=== PATIENT | male | born 1975 | race Caucasian/White ===

== ENCOUNTER 2016-12-01 | Emergency (ER) | payer MEDICAID, OTHER ==
--- NOTE | 2016-12-01 13:41 | ED ---
Recheck HPI - General Chief Complaint: Needlestick/Exposure Stated Complaint: Needle Stick Time Seen by Provider: 12/01/16 13:35 Source: patient, RN notes reviewed Mode of arrival: ambulatory Limitations: no limitations - History of Present Illness Initial Comments: Patient is a 41-year-old male with chief complaint of a needle stick exposure of the right hand approximately one hour ago. Patient reports that he was putting a central line in helping the position when he went to clean up the materials a needle poked him through the back. Patient denies any blood from the needle stick. We are able to obtain the lab work from the exposed person. Patient will be receiving the standard blood work procedure from [facility]. - Related Data Home Medications Medication Instructions Recorded Confirmed No Known Home Medications [No 12/01/16 12/01/16 Known Home Medications] Allergies Allergy/AdvReac Type Severity Reaction Status Date / Time No Known Allergies Allergy Verified 12/01/16 13:31 Review of Systems ROS Statement: Those systems with pertinent positive or pertinent negative responses have been documented in the HPI. ROS Other: All systems not noted in ROS Statement are negative. Past Medical History Past Medical History: No Reported History Additional Past Medical History / Comment(s): kidney stones History of Any Multi-Drug Resistant Organisms: None Reported Past Surgical History: No Surgical Hx Reported Past Anesthesia/Blood Transfusion Reactions: No Reported Reaction Past Psychological History: No Psychological Hx Reported Smoking Status: Never smoker Past Alcohol Use History: None Reported Past Drug Use History: None Reported General Exam - General Exam Comments Initial Comments: Patient is a 41-year-old male. He does not appear to be in any acute distress. Limitations: no limitations General appearance: alert, in no apparent distress Head exam: Present: atraumatic, normocephalic, normal inspection Eye exam: Present: normal appearance, PERRL, EOMI. Absent: scleral icterus, conjunctival injection, periorbital swelling ENT exam: Present: normal exam, mucous membranes moist Neck exam: Present: normal inspection. Absent: tenderness, meningismus, lymphadenopathy Respiratory exam: Present: normal lung sounds bilaterally. Absent: respiratory distress, wheezes, rales, rhonchi, stridor Cardiovascular Exam: Present: regular rate, normal rhythm, normal heart sounds. Absent: systolic murmur, diastolic murmur, rubs, gallop, clicks GI/Abdominal exam: Present: soft, normal bowel sounds. Absent: distended, tenderness, guarding, rebound, rigid Extremities exam: Present: normal inspection, full ROM, normal capillary refill. Absent: tenderness, pedal edema, joint swelling, calf tenderness Back exam: Present: normal inspection Neurological exam: Present: alert, oriented X3, CN II-XII intact Psychiatric exam: Present: normal affect, normal mood Skin exam: Present: warm, dry, intact, normal color. Absent: rash Course Vital Signs 12/01/16 13:32 Temperature 98 F Pulse Rate 78 Respiratory 20 Rate Blood Pressure 145/78 O2 Sat by Pulse 95 Oximetry - Reevaluation(s) Reevaluation #1: 12/01/16 15:21 Lab called back and stated that the source patient was negative for HIV. Exposed patient was informed of this. 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 After doing a central line patient was exposed by a needle stick on his right hand. There is no blood at the needlestick point. Patient was given the standard protocol lab work in the patient he was exposed to will also receive lab draws. She will be informed of the results. Patient will return to work at this time available, patient with the rapid HIV and hepatitis. Patient understands treatment plan will comply. Return parameters were discussed. The source patient lab was reviewed to be negative for the rapid HIV. I did inform the patient of this. Disposition Clinical Impression: Needlestick injury accident with exposure to body fluid Disposition: HOME SELF-CARE Condition: Good Instructions: Needle Stick Injuries (ED) Additional Instructions: Patient will be informed of the results. We'll also draw labs on the source of the exposure. Return to the EC if any alarming signs or symptoms occur. Referrals: None,Stated [Primary Care Provider] - 1-2 days Time of Disposition: 13:49
== END 2016-12-01 13:55 | disposition home or self-care (01) ==
CPT/HCPCS: 99282

== ENCOUNTER 2019-01-19 18:09 | Observation (INO) | payer MEDICAID, OTHER ==
[2019-01-19] MEDS ORDERED: NITROGLYCERIN OINT 1 INCH/GM PACKET TOPICAL STA (18:26)
[2019-01-19] MEDS ORDERED: ASPIRIN 81 MG PO STA (18:26)
--- NOTE | 2019-01-19 18:29 | ED ---
Chest Pain HPI - General Chief Complaint: Chest Pain Stated Complaint: chest pain Time Seen by Provider: 01/19/19 18:21 Source: patient Mode of arrival: wheelchair Limitations: no limitations - History of Present Illness Initial Comments: This 44-year-old white male presents with a complaint of some midsternal chest pain which she describes as a burning type of sensation and it is nonradiating. He denies any shortness of breath. It is not exertionally related. He states that is intermittent in nature and has been going on for approximately 10 days. He denies any palpitations, diaphoresis, or history of cardiac disease. He denies any leg pain or swelling or history of DVT or PE. 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 He's never had a stress test or heart catheterization. No other complaints or modifying factors. - Related Data Home Medications Medication Instructions Recorded Confirmed Calcium Carbonate [Tums] 500 mg PO Q2H 01/19/19 01/19/19 Ibuprofen [Motrin Ib] 800 mg PO Q8H 01/19/19 01/19/19 buPROPion [Wellbutrin] 100 mg PO DAILY 01/19/19 01/19/19 Allergies Allergy/AdvReac Type Severity Reaction Status Date / Time No Known Allergies Allergy Verified 01/19/19 18:41 Review of Systems ROS Statement: Those systems with pertinent positive or pertinent negative responses have been documented in the HPI. ROS Other: All systems not noted in ROS Statement are negative. Past Medical History Past Medical History: No Reported History Additional Past Medical History / Comment(s): kidney stones History of Any Multi-Drug Resistant Organisms: None Reported Past Surgical History: No Surgical Hx Reported Past Anesthesia/Blood Transfusion Reactions: No Reported Reaction Past Psychological History: No Psychological Hx Reported Smoking Status: Never smoker Past Alcohol Use History: None Reported Past Drug Use History: None Reported General Exam - General Exam Comments Initial Comments: GENERAL: The patient is well nourished and well hydrated. VITAL SIGNS: Heart rate, blood pressure, respiratory rate reviewed as recorded in nurse's notes. EYES: Pupils are round and reactive. Extraocular movements are intact. No conjunctival / lid redness or swelling. ENT: No external evidence of injury, swelling, or ecchymosis. Airway is patent. Throat is clear. NECK: Nontender. No swelling or evidence of injury. No subcutaneous emphysema. Trachea is midline. No thyroid mass. HEART: Regular rate and rhythm. Good peripheral pulses. LUNGS/CHEST: Breath sounds clear and equal bilaterally. No rales, rhonchi, or wheezes. No ecchymosis, subcutaneous emphysema, or tenderness. ABDOMEN: Abdomen soft without tenderness. No palpable masses or organomegaly. No peritoneal signs. No abdominal wall swelling or ecchymosis. EXTREMITIES: No extremity tenderness. Normal muscle tone and function. No thoracolumbar tenderness. NEUROLOGIC: Sensation is grossly intact. Cranial nerve exam reveals face is symmetrical, tongue is midline, speech is clear. SKIN: No abrasions or ecchymosis is noted. No induration or masses noted. PSYCHIATRIC: Alert and oriented. Appropriate behavior and judgment. Limitations: no limitations Course Vital Signs 01/19/19 01/19/19 18:14 18:17 Temperature 98.1 F Pulse Rate 95 Respiratory 16 Rate Blood Pressure 157/105 O2 Sat by Pulse 96 Oximetry Chest Pain MDM - MDM The patient was seen and examined. All diagnostics are reviewed. The EKG shows a normal sinus rhythm at a rate of 79. There is no acute ST-T wave changes noted. The patient receives an aspirin as well as some Nitropaste. The chest x-ray does not show any acute processes. The cardiac profile labs are all within normal limits. He is feeling improved on recheck. The possibility of acute coronary syndrome certainly is possible and it is felt as though he would benefit from admission to the hospital for further treatment. Case was discussed with Dr. Wadsworth and he is agreeable with admission. Disposition Clinical Impression: Chest pain, Unstable angina Disposition: ADMITTED IP TO THIS HOSP Condition: Fair Is patient prescribed a controlled substance at d/c from ED?: No Time of Disposition: 20:40 Decision Date: 01/19/19 Decision Time: 20:40
[2019-01-19 18:47] LABS: Basophils % (A) 1 %; Eosinophils # (A) 0.2 k/uL (0-0.7); Eosinophils % (A) 3 %; HCT 47.4 % (39.0-53.0); HGB 15.4 gm/dL (13.0-17.5); Lymphocytes % (A) 25 %; MCH 28.7 pg (25.0-35.0); MCHC 32.6 g/dL (31.0-37.0); MCV 88.3 fL (80.0-100.0); Mean Platelet Volume 6.3; Monocytes # (A) 0.4 k/uL (0-1.0); Monocytes % (A) 5 %; Neutrophils # (A) 5.1 k/uL (1.3-7.7); Neutrophils % (A) 66 %; Platelet Count 297 k/uL (150-450); RBC 5.37 m/uL (4.30-5.90); RDW 13.2 % (11.5-15.5); WBC 7.7 k/uL (3.8-10.6)
[2019-01-19 18:56] LABS: ALT 34 U/L (21-72); AST 38 U/L (17-59); Albumin 5.1 g/dL (3.5-5.0); Alkaline Phosphatase 93 U/L (38-126); Anion Gap 9 mmol/L; Blood Urea Nitrogen 15 mg/dL (9-20); Calcium 9.6 mg/dL (8.4-10.2); Carbon Dioxide 28 mmol/L (22-30); Chloride 103 mmol/L (98-107); Glucose 119 mg/dL (74-99); Magnesium 2.1 mg/dL (1.6-2.3); Sodium 140 mmol/L (137-145); Total Bilirubin 0.9 mg/dL (0.2-1.3)
[2019-01-19 18:58] LABS: Potassium 4.6 mmol/L (3.5-5.1)
[2019-01-19 19:01] LABS: INR 0.9 (<1.2); Partial Thromboplastin Time 24.4 sec (22.0-30.0)
[2019-01-19 19:08] LABS: D-Dimer <0.17 mg/L FEU (<0.60)
--- NOTE | 2019-01-19 19:13 | XR ---
EXAMINATION TYPE: XR chest 2V DATE OF EXAM: 01/19/2019 COMPARISON: 12/10/2008 HISTORY: Chest pain TECHNIQUE: Frontal and lateral views of the chest are obtained. FINDINGS: Heart and mediastinum are normal. Lungs are clear. Diaphragm is normal. Bony thorax appear s normal. IMPRESSION: Normal chest. No change.
[2019-01-19] MEDS ORDERED: NITROGLYCERIN SL TABS 0.4 MG TAB SUBLINGUAL PRN (20:41)
[2019-01-19] MEDS ORDERED: CALCIUM CARBONATE 500 MG CHEWABLE PO PRN (20:45)
[2019-01-20] MEDS: IBUPROFEN 800 MG TAB PO SCH ×2 (00:16→05:59)
[2019-01-20] MEDS: NITROGLYCERIN OINT 1 INCH/GM PACKET TOPICAL SCH ×2 (00:16→05:59)
[2019-01-20] MEDS: PANTOPRAZOLE 40 MG/10 ML VIAL IVP SCH ×2 (00:16→03:00)
[2019-01-20 01:59] VITALS: BMI 37.5
[2019-01-20 06:28] VITALS: TEMP 97
[2019-01-20 07:39] LABS: Cholesterol 198 mg/dL (<200); HDL Cholesterol 55 mg/dL (40-60); LDL Cholesterol,Calculated 122 mg/dL (0-99); Triglycerides 104 mg/dL (<150)
[2019-01-20 08:45] VITALS: BP 149/74; PULSE 84; RESP 18
[2019-01-20] MEDS ORDERED: ENOXAPARIN 40 MG/0.4 ML SYRINGE SQ SCH (09:00)
[2019-01-20] MEDS ORDERED: buPROPion 100 MG TAB PO SCH (09:00)
[2019-01-20] MEDS ORDERED: ASPIRIN 325 MG TAB PO SCH (09:00)
--- NOTE | 2019-01-20 11:23 | US ---
EXAMINATION TYPE: US abdomen complete DATE OF EXAM: 01/20/2019 COMPARISON: NONE CLINICAL HISTORY: Gall stones. NPO, no surgeries. Epigastric burning x 1 week EXAM MEASUREMENTS: Liver Length: 16.7 cm Gallbladder Wall: 0.2 cm CHD: 0.5 cm Spleen: 10.3 cm Right Kidney: 10.0 x 5.6 x 5.8 cm Left Kidney: 10.4 x 6.4 x 5.6 cm Limited visualization due to overlying bowel gas Pancreas: Appears echogenic, tail obscured by overlying bowel gas Liver: wnl Gallbladder: wnl Evidence for sonographic Jc's sign: neg CBD: Obscured by overlying bowel gas CHD: wnl Spleen: wnl Right Kidney: wnl Left Kidney: wnl Upper IVC: wnl Abd Aorta: Proximal obscured by overlying bowel gas The liver is homogenous. The intrahepatic portion of the IVC and proximal abdominal aorta are within normal limits. There is no evidence of cholelithiasis. Common bile duct is unremarkable. The visu alized portions of the pancreas are homogenous. The spleen is unremarkable. Kidneys are symmetric a nd free of hydronephrosis. No renal lesions are seen. IMPRESSION: Somewhat limiting exam secondary to overlying bowel gas however no evidence of cholelithi asis or sonographic evidence of acute cholecystitis is seen.
--- NOTE | 2019-01-20 11:24 | P.CRDCN ---
History of Present Illness Consult date: 01/20/19 Reason for Consult (text): Chest pain. Chief complaint: Chest pain History of present illness: HISTORY OF PRESENT ILLNESS AND PLAN: This is a [44]-year-old [male] with history of kidney stones, foreign body in left anterior thigh, costochondritis. No current cardiac history. 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 Presents in the emergency department for [complaints of central non-exertional chest pain, described as burning/ache for approximately 7-10 days. Patient states there was some radiation to the throat, described throat as being tight. Patient states he tried using Tums, aspirin, Motrin at home for relief but symptoms continued. Patient has no family history of early cardiac disease. Patient denies symptoms of palpitations, shortness of breath, cough, dizziness, nausea or vomiting. Patient currently alert and oriented sitting in the chair with no acute distress. Patient is a never smoker]. SIGNIFICANT PAST MEDICAL HISTORY: [left anterior thigh injury with wood ax, foreign body removal. Viral meningitis, kidney stones, costochondritis history.] PAST SURGICAL HISTORY: See list. EKG shows [sinus rhythm], heart rate [89] beats per minute. Troponins negative x [3]. SIGNIFICANT LABORATORY VALUES: [CBC, BMP, d-dimer all within normal limits. Total cholesterol 198- LDL 122, HDL 55]. Chest x-ray [negative]. No recent echo or stress test. REVIEW OF SYSTEMS: CONSTITUTIONAL: [Denies fever. Denies chills.] EYES: Denies blurred vision. [Denies blurred vision or vision changes. Denies eye pain.] EARS, NOSE, MOUTH & THROAT: [Denies headache. Throat tightness. Denies ear pain Denies hemoptysis.] CARDIOVASCULAR: [C/o central chest pain, burning/ache. Denies shortness of cooper ath. Denies orthopnea. Denies PND. Denies palpitations.] RESPIRATORY: [Denies cough. Denies shortness of breath. ] GASTROINTESTINAL: [Denies abdominal pain or distention. Complains of epigastric pain. Denies diarrhea. Denies constipation. Denies nausea. Denies vomiting.] MUSCULOSKELETAL: [Denies myalgias.] INTEGUMENTARY: [Denies pruitis. Denies rash.] ENDOCRINE: [Denies fatigue. Denies weight change. Denies polydipsia. Denies polyurina Denies heat/cold intolerance.] GENITOURINARY:[ Denies burning, hematuria or urgency with micturation.] HEMATOLOGIC: [Denies history of anemia. Denies bleeding.] NEUROLOGIC: [Denies numbness. Denies tingling. Denies weakness.] PSYCHIATRIC: [Denies anxiety. Denies depression.] PHYSICAL EXAM: VITAL SIGNS: Blood pressure 134/89, heart rate 80, 97.0 temperature GENERAL: Well developed, in no acute distress. HEENT: Head is atraumatic, normocephalic. Pupils are equal, round. Extra ocular movements intact. Mucous membranes moist. Neck supple. No JVD. No carotid bruit. No thyromegaly. LUNGS: Clear to auscultation no wheezes, rales or rhonchi. No chest wall tenderness on palpation or with deep breathing. HEART: Regular rate and rhythm, no rubs or gallops. S1 and S2 heard. No murmur. ABDOMEN: Abdominal exam, WNL. Bowel sounds x4 quads. Soft, non-tender, without masses, organomegaly, or abdominal aorta enlargement. EXTREMITIES/VASCULAR: Extremities have easily palpable radial, femoral, dorsalis pedis and posterior tibial pulses. No cyanosis, calf tenderness. No BLE edema. NEUROLOGIC: Patient is awake, alert and oriented x3. No focal neurologic abnormalities. 1. Atypical chest pain, with negative troponins. 2. epigastric pain PLAN: [Patient to echocardiogram and stress echo. Patient to abdominal ultrasound. Patient to continue all other medical/medication regime. We will continue to follow, please call with any questions or concerns. Thank you kindly for this consult.] Nurse Practioner note has been reviewed by [employer]. Signing provider agrees with the documented findings, assessment and plan of care. Review of Systems REVIEW OF SYSTEMS: CONSTITUTIONAL: [Denies fever. Denies chills.] EYES: Denies blurred vision. [Denies blurred vision or vision changes. Denies eye pain.] EARS, NOSE, MOUTH & THROAT: [Denies headache. Throat tightness. Denies ear pain Denies hemoptysis.] CARDIOVASCULAR: [C/o central chest pain, burning/ache. Denies shortness of breath. Denies orthopnea. Denies PND. Denies palpitations.] RESPIRATORY: [Denies cough. Denies shortness of breath. ] GASTROINTESTINAL: [Denies abdominal pain or distention. Denies diarrhea. Denies constipation. Denies nausea. Denies vomiting.] MUSCULOSKELETAL: [Denies myalgias.] INTEGUMENTARY: [Denies pruitis. Denies rash.] ENDOCRINE: [Denies fatigue. Denies weight change. Denies polydipsia. Denies polyurina Denies heat/cold intolerance.] GENITOURINARY:[ Denies burning, hematuria or urgency with micturation.] HEMATOLOGIC: [Denies history of anemia. Denies bleeding.] NEUROLOGIC: [Denies numbness. Denies tingling. Denies weakness.] PSYCHIATRIC: [Denies anxiety. Denies depression.] Past Medical History Past Medical History: No Reported History Additional Past Medical History / Comment(s): kidney stones, meningitis History of Any Multi-Drug Resistant Organisms: None Reported Past Surgical History: No Surgical Hx Reported Past Anesthesia/Blood Transfusion Reactions: No Reported Reaction Past Psychological History: No Psychological Hx Reported Smoking Status: Never smoker Past Alcohol Use History: None Reported Past Drug Use History: None Reported - Past Family History Father Family Medical History: Cancer Medications and Allergies Home Medications and Allergies Comment(s): PHYSICAL EXAM: VITAL SIGNS: GENERAL: Well developed, in no acute distress. HEENT: Head is atraumatic, normocephalic. Pupils are equal, round. Extra ocular movements intact. Mucous membranes moist. Neck supple. No JVD. No carotid bruit. No thyromegaly. LUNGS: Clear to auscultation no wheezes, rales or rhonchi. No chest wall tenderness on palpation or with deep breathing. HEART: Regular rate and rhythm, no rubs or gallops. S1 and S2 heard. No murmur. ABDOMEN: Abdominal exam, WNL. Bowel sounds x4 quads. Soft, non-tender, without masses, organomegaly, or abdominal aorta enlargement. EXTREMITIES/VASCULAR: Extremities have easily palpable radial, femoral, dorsalis pedis and posterior tibial pulses. No cyanosis, calf tenderness. No BLE edema. NEUROLOGIC: Patient is awake, alert and oriented x3. No focal neurologic abnormalities. Home Medications Medication Instructions Recorded Confirmed Type Calcium Carbonate [Tums] 500 mg PO Q2H 01/19/19 01/19/19 History Ibuprofen [Motrin Ib] 800 mg PO Q8H 01/19/19 01/19/19 History buPROPion [Wellbutrin] 100 mg PO DAILY 01/19/19 01/19/19 History Allergies Allergy/AdvReac Type Severity Reaction Status Date / Time No Known Allergies Allergy Verified 01/19/19 18:41 Physical Exam Vitals: Vital Signs Temp Pulse Pulse Resp BP BP Pulse Ox 01/20/19 08:00 84 18 149/74 84 L 01/20/19 04:00 97 F L 70 16 114/64 01/20/19 00:00 97.6 F 84 16 119/72 96 01/19/19 21:39 97 F L 80 16 134/89 97 01/19/19 21:10 91 33 H 128/97 96 01/19/19 21:00 91 18 130/94 95 01/19/19 20:50 82 20 130/94 93 L 01/19/19 20:40 75 18 130/94 96 01/19/19 20:30 80 10 L 135/90 97 01/19/19 20:20 78 16 135/90 94 L 01/19/19 20:10 79 19 135/90 94 L 01/19/19 20:00 80 18 141/91 97 01/19/19 19:50 80 16 141/91 94 L 01/19/19 19:40 81 15 141/91 94 L 01/19/19 19:30 84 14 148/96 94 L 01/19/19 19:20 83 10 L 148/96 96 01/19/19 19:10 85 12 148/96 93 L 01/19/19 19:00 88 23 148/96 94 L 01/19/19 18:50 81 11 L 148/96 96 01/19/19 18:40 85 12 148/96 95 01/19/19 18:30 79 9 L 152/99 96 01/19/19 18:22 79 16 98 01/19/19 18:17 157/105 01/19/19 18:14 98.1 F 95 16 96 Intake and Output 01/19/19 01/20/19 01/20/19 22:59 06:59 14:59 Intake Total 200 200 Output Total 1 Balance 200 199 Intake: Oral 200 200 Output: Urine 1 Other: # Voids 2 Weight 113.398 kg 118.7 kg 118.388 kg Results 01/19/19 18:32 01/19/19 18:32 Cardiac Enzymes 01/19/19 01/19/19 01/19/19 Range/Units 18:32 18:32 23:57 AST 38 (17-59) U/L Troponin I <0.012 <0.012 (0.000-0.034) ng/mL 01/20/19 Range/Units 06:50 AST (17-59) U/L Troponin I <0.012 (0.000-0.034) ng/mL Coagulation 01/19/19 Range/Units 18:32 PT 10.0 (9.0-12.0) sec APTT 24.4 (22.0-30.0) sec Lipids 01/20/19 Range/Units 06:50 Triglycerides 104 (<150) mg/dL Cholesterol 198 (<200) mg/dL HDL Cholesterol 55 (40-60) mg/dL CBC 01/19/19 Range/Units 18:32 WBC 7.7 (3.8-10.6) k/uL RBC 5.37 (4.30-5.90) m/uL Hgb 15.4 (13.0-17.5) gm/dL Hct 47.4 (39.0-53.0) % Plt Count 297 (150-450) k/uL Comprehensive Metabolic Panel 01/19/19 Range/Units 18:32 Sodium 140 (137-145) mmol/L Potassium 4.6 (3.5-5.1) mmol/L Chloride 103 (98-107) mmol/L Carbon Dioxide 28 (22-30) mmol/L BUN 15 (9-20) mg/dL Creatinine 1.05 (0.66-1.25) mg/dL Glucose 119 H (74-99) mg/dL Calcium 9.6 (8.4-10.2) mg/dL AST 38 (17-59) U/L ALT 34 (21-72) U/L Alkaline Phosphatase 93 (38-126) U/L Total Protein 8.0 (6.3-8.2) g/dL Albumin 5.1 H (3.5-5.0) g/dL Current Medications Generic Name Dose Route Start Last Admin Trade Name Freq PRN Reason Stop Dose Admin Aspirin 81 mg 01/21/19 09:00 Aspirin PO DAILY ARCHANA Bupropion HCl 100 mg 01/20/19 09:00 01/20/19 08:34 Wellbutrin PO 100 mg DAILY ARCHANA Administration Calcium Carbonate/Glycine 500 mg 01/19/19 20:45 Tums PO Q2H PRN Heartburn Enoxaparin Sodium 40 mg 01/20/19 09:00 01/20/19 08:34 Lovenox SQ 40 mg DAILY ARCHANA Administration Ibuprofen 800 mg 01/19/19 22:00 01/20/19 05:59 Motrin PO 800 mg Q8H ARCHANA Administration Nitroglycerin 0.4 mg 01/19/19 20:41 Nitrostat SUBLINGUAL Q5M PRN Chest Pain Pantoprazole Sodium 40 mg 01/19/19 20:45 01/20/19 03:00 Protonix IVP 40 mg HS ARCHANA Administration Intake and Output 01/19/19 01/20/19 01/20/19 22:59 06:59 14:59 Intake Total 200 200 Output Total 1 Balance 200 199 Intake: Oral 200 200 Output: Urine 1 Other: # Voids 2 Weight 113.398 kg 118.7 kg 118.388 kg Patient Weight 01/21/19 06:59 Weight 118.388 kg 01/19/19 18:32 01/19/19 18:32 Assessment and Plan Plan: 1. Atypical chest pain, with negative troponins. 2. epigastric pain PLAN: [Patient to echocardiogram and stress echo to rule out acute cardiac event. Troponins negative 3. Patient to abdominal ultrasound. Patient to continue all other medical/medication regime. we'll continue to follow, please call with any questions or concerns. Thank you kindly for this consult.]
--- NOTE | 2019-01-20 12:01 | ECHOF ---
Referral Reason:cp MEASUREMENTS -------- HEIGHT: 177.8 cm WEIGHT: 118.4 kg BP: RVIDd: 2.5 cm (< 3.3) IVSd: 1.2 cm (0.6 - 1.1) LVIDd: 3.3 cm (3.9 - 5.3) LVPWd: 1.3 cm (0.6 - 1.1) IVSs: 1.7 cm LVIDs: 1.8 cm LVPWs: 1.9 cm Ao Diam: 2.9 cm (2.0 - 3.7) AV Cusp: 1.9 cm (1.5 - 2.6) LA Diam: 2.8 cm (2.7 - 3.8) MV EXCURSION: 10.759 mm (> 18.000) MV EF SLOPE: 54 mm/s (70 - 150) EPSS: 0.4 cm MV E Jorge Luis: 0.54 m/s MV DecT: 142 ms MV A Jorge Luis: 0.55 m/s MV E/A Ratio: 0.98 RAP: 5.00 mmHg RVSP: 14.20 mmHg FINDINGS -------- Sinus rhythm. This was a technically difficult study with suboptimal views. The left ventricular size is normal. There is mild concentric left ventricular hypertrophy. Overa ll left ventricular systolic function is normal with, an EF between 55 - 60 %. The right ventricle is normal in size. The left atrium is normal in size. The right atrial size is normal. Lumason used The aortic valve is trileaflet and appears structurally normal. There is trace mitral regurgitation. Trace tricuspid regurgitation present. The right ventricular systolic pressure, as measured by Dopp ler, is 14.20mmHg. There is no pulmonic regurgitation present. The aortic root size is normal. IVC Not well visulized. There is no pericardial effusion. CONCLUSIONS -------- 1. Sinus rhythm. 2. This was a technically difficult study with suboptimal views. 3. The left ventricular size is normal. 4. There is mild concentric left ventricular hypertrophy. 5. Overall left ventricular systolic function is normal with, an EF between 55 - 60 %. 6. The right ventricle is normal in size. 7. The left atrium is normal in size. 8. The right atrial size is normal. 9. Lumason used 10. The aortic valve is trileaflet and appears structurally normal. 11. There is trace mitral regurgitation. 12. Trace tricuspid regurgitation present. 13. The right ventricular systolic pressure, as measured by Doppler, is 14.20mmHg. 14. There is no pulmonic regurgitation present. 15. The aortic root size is normal. 16. IVC Not well visulized. 17. There is no pericardial effusion. PROFESSOR OF GENETICS: Airam Spears RDCS
--- NOTE | 2019-01-20 12:59 | ECHOS ---
STRESS ECHOCARDIOGRAM INDICATIONS: Chest pain. MEDICATIONS: Wellbutrin, Motrin, TUMS BASELINE HEART RATE: 92 BASELINE BLOOD PRESSURE: 103/82 MAXIMUM HEART RATE: 173 MAXIMUM BLOOD PRESSURE: 158/73 85% MPHR: 151 100% MPHR: 178 METS: 10.5 MAXIMUM STAGE REACHED: III TOTAL EXERCISE TIME: 9:12 CLINICAL INFORMATION: The patient was exercised for a total of 9 minutes. The peak heart rate of 173 was achieved. Maximum blood pressure 158/73 mmHg was noted. Patient did not complain of any chest pain during the test. The resting EKG shows normal sinus rhythm with normal NH interval and QRS duration and normal ST-T waves. No ST-segment depression suggestive of ischemia is noted. The baseline echocardiographic images reveals a normal left ventricular chamber size with normal left ventricular systolic function in the immediate postexercise period. Normal increase in the wall thickness and contractility is noted. FINAL IMPRESSION: This stress echocardiographic study is negative for stress-induced ischemia. EKG portion of the stress test is not suggestive of ischemia. MMODL / IJN: [id number] /
--- NOTE | 2019-01-20 21:52 | P.HPIM ---
History of Present Illness H&P Date: 01/20/19 Chief Complaint: Chest pain Patient is a gyxia-dcpt-mac male with a known history of renal stones, foreign body in the left anterior thigh/axe injury, costochondritis came to ER with complaints of chest pain mainly mid xiphisternal region mainly burning type 7 out of 10 in severity. Patient also complaining of radiation to throat/throat tightness upon admission. Patient does not have any previous cardiac history. Patient tried Tums at home without much relief of the pain. Patient was also taking Motrin. Denied any shortness of breath. No cough or sputum production. No fever no chills. No nausea vomiting or abdominal pain or diarrhea. Denied any no recent illnesses. No family history of coronary artery disease. Never a smoker. Chest x-ray showed no acute cardio process EKG showed sinus rhythm normal US abdomen showed somewhat limited exam secondary to overlying bowel gas however no evidence ofcholelithiasis or sonographic evidence of acute cholecystitis is seen. Review of Systems Constitutional: Patient denies any fever or chills . No generalized weakness or weight loss. Abdomen: Patient denied nausea vomiting and diarrhea and abdominal pain. Cardiovascular: Epigastric pain. Patient denies any chest pain or short of breath no palpitations. Respiratory: patient denied any cough is from production. No shortness of breath Neurologic: Patient denied any numbness or tingling headache. Musculoskeletal: Patient denies any complaints of joint swelling or deformity. Skin: Negative Psychiatric: Negative Endocrine: No heat or cold intolerance. No recent weight gain. Genitourinary: No dysuria or hematuria. All other 14 point ROS negative except the above Past Medical History Past Medical History: No Reported History Additional Past Medical History / Comment(s): kidney stones, meningitis History of Any Multi-Drug Resistant Organisms: None Reported Past Surgical History: No Surgical Hx Reported Past Anesthesia/Blood Transfusion Reactions: No Reported Reaction Past Psychological History: No Psychological Hx Reported Smoking Status: Never smoker Past Alcohol Use History: None Reported Past Drug Use History: None Reported - Past Family History Father Family Medical History: Cancer Medications and Allergies Home Medications Medication Instructions Recorded Confirmed Type Calcium Carbonate [Tums] 500 mg PO Q2H 01/19/19 01/19/19 History Ibuprofen [Motrin Ib] 800 mg PO Q8H 01/19/19 01/19/19 History buPROPion [Wellbutrin] 100 mg PO DAILY 01/19/19 01/19/19 History Allergies Allergy/AdvReac Type Severity Reaction Status Date / Time No Known Allergies Allergy Verified 01/19/19 18:41 Physical Exam Vitals: Vital Signs Temp Pulse Pulse Resp BP BP Pulse Ox 01/20/19 08:00 84 18 149/74 84 L 01/20/19 04:00 97 F L 70 16 114/64 01/20/19 00:00 97.6 F 84 16 119/72 96 01/19/19 21:39 97 F L 80 16 134/89 97 01/19/19 21:10 91 33 H 128/97 96 01/19/19 21:00 91 18 130/94 95 01/19/19 20:50 82 20 130/94 93 L 01/19/19 20:40 75 18 130/94 96 01/19/19 20:30 80 10 L 135/90 97 01/19/19 20:20 78 16 135/90 94 L 01/19/19 20:10 79 19 135/90 94 L 01/19/19 20:00 80 18 141/91 97 01/19/19 19:50 80 16 141/91 94 L 01/19/19 19:40 81 15 141/91 94 L 01/19/19 19:30 84 14 148/96 94 L 01/19/19 19:20 83 10 L 148/96 96 01/19/19 19:10 85 12 148/96 93 L 01/19/19 19:00 88 23 148/96 94 L 01/19/19 18:50 81 11 L 148/96 96 01/19/19 18:40 85 12 148/96 95 01/19/19 18:30 79 9 L 152/99 96 01/19/19 18:22 79 16 98 01/19/19 18:17 157/105 01/19/19 18:14 98.1 F 95 16 96 Intake and Output 01/19/19 01/20/19 01/20/19 22:59 06:59 14:59 Intake Total 200 200 Output Total 1 Balance 200 199 Intake: Oral 200 200 Output: Urine 1 Other: # Voids 2 Weight 113.398 kg 118.7 kg 118.388 kg PHYSICAL EXAMINATION: Patient is lying in the bed comfortably, no acute distress, awake alert and oriented.. HEENT: Normocephalic. Neck is supple. Pupils reactive. Nostrils clear. Oral cavity is moist. Ears reveal no drainage. Neck reveals no JVD, carotid bruits, or thyromegaly. CHEST EXAMINATION: Trachea is central. Symmetrical expansion. Lung whalen clear to auscultation and percussion. CARDIAC: Normal S1, S2 with no gallops. No murmurs ABDOMEN: Soft. Mild tenderness of the xiphisternal region. Bowel sounds normal. No organomegaly. No abdominal bruits. Extremities: reveal no edema. No clubbing or cyanosis Neurologically awake, alert, oriented x3 with well-coordinated movements. No focal deficits noted Skin: No rash or skin lesions. Psychiatric: Coperative. Nonsuicidal Musculoskeletal: No joint swelling or deformity. Normal range of motion. Results CBC & Chem 7: 01/19/19 18:32 01/19/19 18:32 Labs: Abnormal Lab Results - Last 24 Hours (Table) 01/19/19 01/20/19 Range/Units 18:32 06:50 Glucose 119 H (74-99) mg/dL Albumin 5.1 H (3.5-5.0) g/dL LDL Cholesterol, Calc 122 H (0-99) mg/dL Thrombosis Risk Factor Assmnt - DVT/VTE Prophylaxis DVT/VTE Prophylaxis: Pharmacologic Prophylaxis ordered - Choose All That Apply Any of the Below Risk Factors Present?: No Other Risk Factors: No Other congenital or acquired thrombophilia - If yes, enter type in comment: No Thrombosis Risk Factor Assessment Level: Very Low Risk Assessment and Plan Assessment: Atypical chest pain. Ruled out ACS. GERD versus musculoskeletal. History of renal stones. No evidence of gallstones noted in the US of abdomen History of viral meningitis Mild hyperlipidemia LDL 138 DVT prophylaxis Plan: Patient with be continued on telemetry monitoring. Serial EKG and troponins negative. Continue with Protonix. Patient was seen by cardiology and underwent stress echocardiogram. Further recommendations based on the clinical course. Time with Patient: Greater than 30
--- NOTE | 2019-01-20 21:55 | P.DS ---
Providers Date of admission: 01/19/19 20:41 Expected date of discharge: 01/20/19 Attending physician: Criselda Wadsworth Consults: 01/19/19 20:41 Consult Physician Urgent Consulting Provider: Kvng Sesay Consult Reason/Comments: cp Do you want consulting provider notified?: Yes Primary care physician: Elvi Duncan Hospital Course: Discharge diagnoses. Atypical chest pain. Ruled out ACS. GERD versus musculoskeletal. Negative stress echo cardiogram. History of renal stones. No evidence of gallstones noted in the US of abdomen History of viral meningitis Mild hyperlipidemia LDL 138 DVT prophylaxis Hospital course Patient is a ltahu-uyoh-ihv male with a known history of renal stones, foreign body in the left anterior thigh/axe injury, costochondritis came to ER with complaints of chest pain mainly mid xiphisternal region mainly burning type 7 out of 10 in severity. Patient also complaining of radiation to throat/throat tightness upon admission. Patient does not have any previous cardiac history. Patient tried Tums at home without much relief of the pain. Patient was also taking Motrin. Denied any shortness of breath. No cough or sputum production. No fever no chills. No nausea vomiting or abdominal pain or diarrhea. Denied any no recent illnesses. No family history of coronary artery disease. Never a smoker. Chest x-ray showed no acute cardio process EKG showed sinus rhythm normal US abdomen showed somewhat limited exam secondary to overlying bowel gas however no evidence ofcholelithiasis or sonographic evidence of acute cholecystitis is seen. Patient was continued on telemetry monitoring. Serial EKG and troponins negative. D-dimer not elevated. Continue with Protonix. Patient wants to take [id number] counter PPI. Patient was seen by cardiology and underwent stress echocardiogram. Stress echo cardiac exam showed no evidence of stress- induced ischemia. EKG portion of the stress test is not suggestive of ischemia. Patient was advised to continue with PPI for 4 weeks and follow with his primary care physician. PHYSICAL EXAMINATION: Patient is lying in the bed comfortably, no acute distress, awake alert and oriented.. HEENT: Normocephalic. Neck is supple. Pupils reactive. Nostrils clear. Oral cavity is moist. Ears reveal no drainage. Neck reveals no JVD, carotid bruits, or thyromegaly. CHEST EXAMINATION: Trachea is central. Symmetrical expansion. Lung whalen clear to auscultation and percussion. CARDIAC: Normal S1, S2 with no gallops. No murmurs ABDOMEN: Soft. Bowel sounds normal. No organomegaly. No abdominal bruits. Extremities: reveal no edema. No clubbing or cyanosis Neurologically awake, alert, oriented x3 with well-coordinated movements. No focal deficits noted Skin: No rash or skin lesions. Psychiatric: Coperative. Nonsuicidal Musculoskeletal: No joint swelling or deformity. Normal range of motion. 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 ] Respiratory 16 16 18 Rate Blood Pressure 119/72 114/64 149/74 [Right Arm Sitting] O2 Sat by Pulse 96 84 L Oximetry Patient Condition at Discharge: Stable Plan - Discharge Summary New Discharge Prescriptions: Continue buPROPion [Wellbutrin] 100 mg PO DAILY Ibuprofen [Motrin Ib] 800 mg PO Q8H Calcium Carbonate [Tums] 500 mg PO Q2H Discharge Medication List Calcium Carbonate [Tums] 500 mg PO Q2H 01/19/19 [History] Ibuprofen [Motrin Ib] 800 mg PO Q8H 01/19/19 [History] buPROPion [Wellbutrin] 100 mg PO DAILY 01/19/19 [History] Follow up Appointment(s)/Referral(s): [facility] [Provider Group] - 1 Week Dakota Boles MD [Primary Care Provider] - 1-2 Days Patient Instructions/Handouts: Chest Pain (DC), Cardiac Stress Test (DC) Discharge Disposition: HOME SELF-CARE
[2019-01-21] MEDS ORDERED: ASPIRIN 81 MG PO SCH (09:00)
== END 2019-01-20 13:30 | disposition home or self-care (01) ==
LOC: EC 18:09 → 3SCARD 20:41
PROVIDERS: ADMIT Hospitalist; ATTEND Hospitalist
DX: R07.89 Other chest pain (principal); K21.9 Gastro-esophageal reflux disease without esophagitis; E78.5 Hyperlipidemia, unspecified; Z79.899 Other long term (current) drug therapy; Z79.1 Long term (current) use of non-steroidal anti-inflammatories (NSAID); Z87.442 Personal history of urinary calculi; Z86.61 Personal history of infections of the central nervous system; Z80.9 Family history of malignant neoplasm, unspecified
CPT/HCPCS: 96376; 96372; 96374; 99285; 36415; 93005; 93306; 93351; 85379; 83880; 80061; 80053; 83735; 84484 ×2; 85025; 85610; 85730; 71046; 76700; G0378 ×2; J1650; C9113; Q9950

== ENCOUNTER → 2020-11-25 | Outpatient (CLI) | payer MEDICAID ==
[2020-11-25 21:15] LABS: Mumps Virus IgG Ab Interp POSITIVE (NEGATIVE); Mumps Virus IgG Antibody 2.6 AI
[2020-11-25 22:05] LABS: Hepatitis B Surface Antigen Non-Reactive (Non-Reactive)
== END | disposition home or self-care (01) ==
LOC: LABWHC1 11:10
PROVIDERS: ATTEND Physician Assistant
DX: Z00.00 Encounter for general adult medical examination without abnormal findings (principal)
CPT/HCPCS: 36415; 86735; 86762; 86765; 86787; 87340